=== PATIENT | female | born 1960 | race Caucasian/White ===

== ENCOUNTER 2017-12-31 11:15 | Emergency (ER) | payer BC ==
[2017-12-31 13:46] VITALS: BP 140/69
--- NOTE | 2017-12-31 14:06 | UC ---
[facility] HPI - HPI Summary HPI Summary: Pain began yesterday left upper jaw. Worsening pain now with facial swelling. No fevers. - History of Current Complaint Chief Complaint: UCDentalProblem Stated Complaint: ORAL COMPLAINT Hx Obtained From: Patient Onset/Duration: Sudden Onset, Lasting Days - 2, Worse Since - today Severity: Moderate Pain Intensity: 6 Aggravating Factor(s): Chewing Alleviating Factor(s): Nothing Related History: Previous Dental Care on Same Tooth - tooth fractured previously - Allergies/Home Medications Allergies/Adverse Reactions: Allergies Allergy/AdvReac Type Severity Reaction Status Date / Time MS Latex [Latex] Allergy Rash Verified 12/31/17 13:46 IVP dye Allergy Anaphylatic Uncoded 12/31/17 13:49 Shock PMH/Surg Hx/FS Hx/Imm Hx - Additional Past Medical History Additional PMH: Psoriatic arthritis, Fibromyalgia, PCOS Cardiovascular History: Hypertension - Surgical History Surgical History: Yes Surgery Procedure, Year, and Place: Gallbladder, reduction mamoplasty, carpal tunnel bilateral wrist and ulnar release in left elbow, LTKR - Family History Known Family History: Positive: Hypertension, Diabetes Negative: Cardiac Disease - Social History Occupation: Disabled Lives: With Family Alcohol Use: None Substance Use Type: Prescribed Smoking Status (MU): Former Smoker Type: Cigarettes Length of Time of Smoking/Using Tobacco: 30 yrs Have You Smoked in the Last Year: No When Did the Patient Quit Smoking/Using Tobacco: 1995 Review of Systems ENT: Dental Pain Musculoskeletal: Arthralgia Is Patient Immunocompromised?: No All Other Systems Reviewed And Are Negative: Yes Physical Exam Triage Information Reviewed: Yes Appearance: Well-Appearing, Pain Distress - mild, Obese Vital Signs: Initial Vital Signs Temp 98 F 12/31/17 13:37 Pulse 95 12/31/17 13:37 Resp 16 12/31/17 13:37 BP 140/69 12/31/17 13:37 Pulse Ox 99 12/31/17 13:37 Vital Signs Reviewed: Yes Eyes: Positive: Conjunctiva Clear ENT: Positive: Pharynx normal, TMs normal Dental: Positive: Gross Decay/Caries @ - #11, Abscess @ - #11 Neck exam: Normal Respiratory Exam: Normal Cardiovascular: Positive: RRR, Murmur:Sys:Grade _?_/ - 2/6 Musculoskeletal Exam: Normal Musculoskeletal: Positive: Edema @ Neurological Exam: Normal Psychological Exam: Normal Skin Exam: Normal Dental Complaint Course/Dx - Differential Dx/Diagnosis Differential Diagnosis/Dx: Dental Abscess, Dental Caries, Fractured Tooth, Gingivitis Provider Diagnoses: Dental Abscess Discharge - Sign-Out/Discharge Documenting (check all that apply): Discharge/Admit/Transfer - Discharge Plan Condition: Stable Disposition: HOME Prescriptions: Penicillin VK 500 MG TAB(NF) [Penicillin VK 500 mg Tab] 500 mg PO QID #40 tab Patient Education Materials: Dental Abscess (ED), Penicillin V (By mouth) Referrals: Lu Bond MD [Primary Care Provider] - Additional Instructions: Follow up with the dentist this week. - Billing Disposition and Condition Condition: STABLE Disposition: HOME
== END 2017-12-31 13:11 | disposition home or self-care (01) ==
LOC: UCCORT 11:15
DX: K04.7 Periapical abscess without sinus (principal); I10 Essential (primary) hypertension; Z91.041 Radiographic dye allergy status; Z91.040 Latex allergy status; Z87.891 Personal history of nicotine dependence